=== PATIENT | female | born 1930 | race Caucasian/White ===

== ENCOUNTER 2017-05-03 14:23 | Emergency (ER) | payer MEDICARE, MEDICAID ==
--- NOTE | 2017-05-03 14:58 | ED Physician Chart ---
ED Chief Complaint/HPI - Patient Information Date Seen:: 05/03/17 Time Seen:: 14:57 Chief Complaint:: Right medial ankle laceration History of Present Illness:: 86 yo female was brought from [facility] to ER for a right medial ankle laceration incurred when she felt while transferring from wheelchair to bed. Allergies:: Allergies Allergy/AdvReac Type Severity Reaction Status Date / Time valsartan [From Diovan] AdvReac Verified 05/03/17 14:48 Vitals:: Vital Signs - 8 hr 05/03/17 14:48 Temp 98.7 F HR 75 RR 15 BP 117/74 O2 Sat % 97 ED Review of Systems - Review of Systems General/Constitutional: No fever Skin: Skin lesions Head: No headache Eyes: No pain ENT: No nasal drainage Neck: No neck pain Cardio Vascular: No chest pain Pulmonary: No SOB GI: No nausea, No vomiting Musculoskeletal: No bone or joint pain ED Past Medical History - Past Medical History Past Medical History: Other (wheelchair bound) Social History: Non Smoker, No Alcohol, No Drug Use Family Medical History - Family Member Mother History Unknown: Yes Hx Family Cancer: No Hx Family Coronary Artery Disease: No Hx Family Hypertension: No Hx Family Stroke: No Hx Family Dementia: No Hx Family HIV: No Hx Family Hepatitis: No ED Physical Exam - Physical Examination General/Constitutional: Awake, Alert Head: Atraumatic Eyes: PERRL Skin: No ecchymosis ENMT: Nasal exam nl Neck: No nuchal rigidity Respiratory: No Wheeze/Rhonchi/Rales Cardio Vascular: RRR, No murmur, gallop, rubs, NL S1 S2 GI: No tenderness/rebounding/guarding Other Extremities comments:: Right medial ankle laceration V-shaped 5cm x 4cm Other Neuro/Psych comments:: oriented to self and place ED Assessment - Assessment General Assessment: Right medial ankle laceration Assessment/Comments:: Laceration repair TdaP vaccine Rocephin 1 gm IM Lametrogin 150 mg qd D/c to SNF F/u PCP Remove sutures in 14 days Location:: Right medial ankle laceration Laceration Type:: Simple Prep/Irrigation:: 4cm x 5cm V-shaped wound was cleaned with NS, hydrogen peroxide and betadine, properly draped. Subsequently, 1% lidocaine was injected and a total of six horizontal mattress 4.0 simple interrupted sutures were placed to close the wound. Patient tolerated well without complication. ED Septic Shock - . Is Septic Shock (SBP<90, OR Lactate>4 mmol\L) present?: No - <6hrs of presentation: Vital Signs: Vital Signs - 8 hr 05/03/17 14:48 Temp 98.7 F HR 75 RR 15 BP 117/74 O2 Sat % 97 ED Reassessment (Disposition) - Reassessment Reassessment Condition:: Improved - Aftercare/Follow up Instructions Aftercare/Follow-Up Instructions:: Counseled pt regarding lab results/diagnosis & need follow up - Patient Disposition Discharge/Transfer:: Home ED Discharge Plan - Patient Disposition Admit/Discharge/Transfer: Discharge/Transfered to SNF Condition at Disposition: Stable Instructions: Laceration Care, Adult
[2017-05-03] MEDS ORDERED: Bacitracin pkt 1 gm Pkt TP ONE (15:45)
[2017-05-03] MEDS ORDERED: Bacitracin pkt 1 gm Pkt TP STA (15:49)
== END 2017-05-03 16:20 ==
LOC: ER 14:23
DX: S91.011A Laceration without foreign body, right ankle, initial encounter (principal); Z88.8 Allergy status to other drugs, medicaments and biological substances; X58.XXXA Exposure to other specified factors, initial encounter; Y93.89 Activity, other specified; Y92.89 Other specified places as the place of occurrence of the external cause; Y99.8 Other external cause status
CPT/HCPCS: 99284; 12002; 90715; 96372; J0696; A4217; Z7502; Z7610

== ENCOUNTER 2017-10-17 14:15 | Emergency (ER) | payer MEDICARE, MEDICAID ==
--- NOTE | 2017-10-17 14:33 | ED Physician Chart ---
ED Chief Complaint/HPI - Patient Information Date Seen:: 10/17/17 Time Seen:: 14:20 Chief Complaint:: abnormal EKG History of Present Illness:: Patient had an abnormal EKG at her extended care facility 2 days ago and she was sent here for evaluation. EKG showed bigeminy. Allergies:: Allergies Allergy/AdvReac Type Severity Reaction Status Date / Time valsartan [From Diovan] AdvReac Verified 05/03/17 14:48 Historian:: Patient, EMS ED Review of Systems - Review of Systems General/Constitutional: No fever, No chills, No weight loss, No weakness, No diaphoresis, No edema, No loss of appetite Skin: No skin lesions, No rash, No bruising Head: No headache, No light-headedness Eyes: No loss of vision, No pain, No diplopia ENT: No earache, No nasal drainage, No sore throat, No tinnitus Neck: No neck pain, No swelling, No thyromegaly, No stiffness, No mass noted Cardio Vascular: No chest pain, No palpitations, No PND, No orthopnea, No edema Pulmonary: No SOB, No cough, No sputum, No wheezing GI: No nausea, No vomiting, No diarrhea, No pain, No melena, No hematochezia, No constipation, No hematemesis G/U: No dysuria, No frequency, No hematuria Musculoskeletal: No bone or joint pain, No back pain, No muscle pain Endocrine: No polyuria, No polydipsia Psychiatric: No prior psych history, No depression, No anxiety, No suicidal ideation Hematopoietic: No bruising, No lymphadenopathy Allergic/Immuno: No urticaria, No angioedema Neurological: No syncope, No focal symptoms, No weakness, No paresthesia, No headache, No seizure, No dizziness, No confusion, No vertigo ED Past Medical History - Past Medical History Past Medical History: HTN, Arthritis, Dementia, Other (psychosis; Alzheimer disease) Family History: Other (unavailable) Social History: Care Facility Surgical History: other (unavailable) Psychiatricy History: Dementia Medication: Reviewed Family Medical History - Family Member Mother History Unknown: Yes Hx Family Cancer: No Hx Family Coronary Artery Disease: No Hx Family Hypertension: No Hx Family Stroke: No Hx Family Dementia: No Hx Family HIV: No Hx Family Hepatitis: No ED Physical Exam - Physical Examination General/Constitutional: Awake Other Gen/Cons comments:: Patient is confused. She does not know the correct year. Head: Atraumatic Eyes: Lids, conjuctiva normal, PERRL Skin: Nl inspection, No rash ENMT: External ears, nose nl, Nasal exam nl Other ENMT comments:: Edentulous Neck: No nuchal rigidity Respiratory: Nl effort/Exclusion, Clear to Auscultation Cardio Vascular: RRR, No murmur, gallop, rubs GI: No tenderness/rebounding/guarding : No CVA tenderness Other Extremities comments:: Contracture right wrist and right hand Other Neuro/Psych comments:: Alert and confused Misc: No paraspinal tenderness ED Labs/Radiology/EKG Results - Radiology Results Results: Chest x-ray showed calcification of the aortic arch; otherwise chest x-ray was normal - EKG Interpretations Rate & Rhythm: normal sinus rhythm with a rate of 63 Comments:: Normal axis ED Assessment - Assessment General Assessment: Patient's cardiac rhythm 2 days ago was bigeminy but is now normal sinus rhythm. I talked to Dr. Bam Quinteros and we agreed patient can return to her facility ED Septic Shock - . Is Septic Shock (SBP<90, OR Lactate>4 mmol\L) present?: No ED Reassessment (Disposition) - Reassessment Reassessment Condition:: Improved - Diagnosis Diagnosis:: Cardiac arrhythmia (bigeminy), subsided. - Aftercare/Follow up Instructions Aftercare/Follow-Up Instructions:: Refer to Discharge Instructions - Patient Disposition Discharge/Transfer:: Longterm Care - SNF Condition at Disposition:: Stable, Unchanged
--- NOTE | 2017-10-17 14:44 | Diagnostic Imaging Report ---
CHEST X-RAY: AP view INDICATION: Cardiac arrhythmia COMPARISON: Chest x-ray 02/10/2015 FINDINGS: Chronic lung changes seen with left basal subsegmental atelectasis versus scarring. No focal consolidation or evidence of monique CHF. Cardiomegaly is noted with atherosclerosis. There is evidence of right shoulder arthroplasty. IMPRESSION: Chronic lung changes with left basal subsegmental atelectasis versus scarring. No focal consolidation identified. No evidence of monique CHF. Cardiomegaly and atherosclerotic vascular disease.
== END 2017-10-17 15:38 ==
LOC: ER 14:15
DX: I49.8 Other specified cardiac arrhythmias (principal); I10 Essential (primary) hypertension; M19.90 Unspecified osteoarthritis, unspecified site; Z88.8 Allergy status to other drugs, medicaments and biological substances
CPT/HCPCS: 71045-TC; 93005; Z7502

== ENCOUNTER 2018-05-28 14:54 | Emergency (ER) | payer MEDICARE, MEDICAID ==
--- NOTE | 2018-05-28 15:06 | ED Physician Chart ---
ED Chief Complaint/HPI - Patient Information Date Seen:: 05/28/18 Time Seen:: 15:00 Chief Complaint:: right hip pain History of Present Illness:: Patient fell in the shower yesterday at 10 AM. Allergies:: Allergies Allergy/AdvReac Type Severity Reaction Status Date / Time valsartan [From Diovan] AdvReac Verified 05/03/17 14:48 Historian:: Patient, EMS Review:: Nurse's Note Reviewed ED Review of Systems - Review of Systems General/Constitutional: No fever, No chills, No weight loss, No weakness, No diaphoresis, No edema, No loss of appetite Skin: No skin lesions, No rash, No bruising Head: No headache, No light-headedness Eyes: No loss of vision, No pain, No diplopia ENT: No earache, No nasal drainage, No sore throat, No tinnitus Neck: No neck pain, No swelling, No thyromegaly, No stiffness, No mass noted Cardio Vascular: No chest pain, No palpitations, No PND, No orthopnea, No edema Pulmonary: No SOB, No cough, No sputum, No wheezing GI: No nausea, No vomiting, No diarrhea, No pain, No melena, No hematochezia, No constipation, No hematemesis G/U: No dysuria, No frequency, No hematuria Musculoskeletal: No back pain, No muscle pain Endocrine: No polyuria, No polydipsia Psychiatric: No prior psych history, No depression, No anxiety, No suicidal ideation Hematopoietic: No bruising, No lymphadenopathy Allergic/Immuno: No urticaria, No angioedema Neurological: No syncope, No focal symptoms, No weakness, No paresthesia, No headache, No seizure, No dizziness, No confusion, No vertigo ED Past Medical History - Past Medical History Past Medical History: HTN, Arthritis, Dementia, Other Family History: Other Social History: Smoker (not available), Care Facility Surgical History: other Psychiatricy History: Dementia (available) Medication: Reviewed Family Medical History - Family Member Mother History Unknown: Yes Hx Family Cancer: No Hx Family Coronary Artery Disease: No Hx Family Hypertension: No Hx Family Stroke: No Hx Family Dementia: No Hx Family HIV: No Hx Family Hepatitis: No ED Physical Exam - Physical Examination General/Constitutional: Awake Other Gen/Cons comments:: Chronically ill-appearing Head: Atraumatic Eyes: Lids, conjuctiva normal Skin: Nl inspection ENMT: External ears, nose nl Other ENMT comments:: Edentulous Neck: No nuchal rigidity Respiratory: Nl effort/Exclusion, Clear to Auscultation Cardio Vascular: RRR, No murmur, gallop, rubs Other GI comments:: Very large ventral hernia Other Extremities comments:: Arthritic contractures both hands; movement right leg and appears painful; right foot externally rotated Neuro/Psych: No focal deficits ED Labs/Radiology/EKG Results - Lab Results Results: Laboratory Results WBC 9.5 Th/cmm (4.8-10.8) 05/28/18 15: RBC 4.37 Mil/cmm (3.80-5.20) 05/28/18 15: Hgb 12.2 gm/dL (12-16) 05/28/18 15: Hct 37.5 % (41.0-60) L 05/28/18: MCV 85.7 fl (81-100) 05/28/18: MCH 28.0 pg (27.0-31.0) 05/28/18: MCHC Differential 32.6 pg (28.0-36.0) 05/28/18: RDW 15.3 % (11.5-20.0) 05/28/18: Plt Count 236 Th/cmm (150-400) 05/28/18 15: MPV 8.1 fl 05/28/18: Neutrophils % 79.6 % (40.0-80.0) 05/28/18: Lymphocytes % 12.6 % (20.0-50.0) L 05/28/18: Monocytes % 5.5 % (2.0-10.0) 05/28/18: Eosinophils % 1.8 % (0.0-5.0) 05/28/18: Basophils % 0.5 % (0.0-2.0) 05/28/18 15: PT 10.4 SECONDS (9.5-11.5) 05/28/18 15: INR 1.00 (0.5-1.4) 05/28/18 15: PTT (Actin FS) 23.5 SECONDS (26.0-38.0) L 05/28/18 15:28 Sodium 144 mEq/L (136-145) 05/28/18 15:28 Potassium 4.6 mEq/L (3.5-5.1) 05/28/18 15:28 Chloride 111 mEq/L (98-107) H 05/28/18 15:28 Carbon Dioxide 25.4 mEq/L (21.0-31.0) 05/28/18 15:28 Anion Gap 12.2 (7.0-16.0) 05/28/18 15:28 BUN 33 mg/dL (7-25) H 05/28/18 15:28 Creatinine 0.9 mg/dL (0.6-1.2) 05/28/18 15:28 Est GFR ( Amer) TNP 05/28/18 15:28 Est GFR (Non-Af Amer) TNP 05/28/18 15:28 BUN/Creatinine Ratio 36.7 05/28/18 15:28 Glucose 188 mg/dL (70-105) H 05/28/18 15:28 Calcium 10.6 mg/dL (8.6-10.3) H 05/28/18 15:28 - Radiology Results Results: Right hip and AP pelvis showed no fracture; chest x-ray showed no infiltrate and prominent aortic arch; CT pelvis without contrast showed no fracture ED Assessment - Assessment General Assessment: Since patient has pain with movement of right leg and remainder right leg appears normal an occult fracture of the right hip is certainly possible although regular x-rays and CAT scan were negative. An MRI is a more definitive test. Patient should be admitted to the hospital and I spoke to Janie the case resolution specialist with the patient's urine. Patient to be transferred to [facility] or [place]. ED Septic Shock - . Is Septic Shock (SBP<90, OR Lactate>4 mmol\L) present?: No ED Reassessment (Disposition) - Reassessment Reassessment Condition:: Unchanged - Diagnosis Diagnosis:: Possible occult fracture right hip; dementia - Patient Disposition Discharge/Transfer:: Acute Care (other hosp) Transport Method:: BLS Condition at Disposition:: Stable, Unchanged
[2018-05-28 15:43] LABS: % BASOPHILS 0.5 % (0.0-2.0); % EOSINOPHILS 1.8 % (0.0-5.0); % LYMPHOCYTES 12.6 % (20.0-50.0); % MONOCYTES 5.5 % (2.0-10.0); % NEUTROPHILS 79.6 % (40.0-80.0); EOSINOPHILE ABSOLUTE 0.2 Th/cmm (0.1-0.4); HEMATOCRIT 37.5 % (41.0-60); HEMOGLOBIN 12.2 gm/dL (12-16); LYMPHOCYTE ABSOLUTE 1.2 Th/cmm (1.5-3.0); MEAN CELL VOLUME 85.7 fl (81-100); MEAN CORPUSCULAR HGB CONC 32.6 pg (28.0-36.0); MEAN PLATELET VOLUME 8.1 fl; MONOCYTE ABSOLUTE 0.5 Th/cmm (0.3-1.0); NEUTROPHILE ABSOLUTE 7.6 Th/cmm (1.8-8.0); PLATELET COUNT 236 Th/cmm (150-400); RED BLOOD COUNT 4.37 Mil/cmm (3.80-5.20); RED CELL DISTRIBUTION WIDTH 15.3 % (11.5-20.0); WHITE BLOOD COUNT 9.5 Th/cmm (4.8-10.8)
[2018-05-28 15:47] LABS: ANION GAP 12.2 (7.0-16.0); BUN - UREA NITROGEN 33 mg/dL (7-25); CALCIUM SERUM 10.6 mg/dL (8.6-10.3); CARBON DIOXIDE 25.4 mEq/L (21.0-31.0); CHLORIDE 111 mEq/L (98-107); CREATININE - SERUM 0.9 mg/dL (0.6-1.2); GLUCOSE 188 mg/dL (70-105); POTASSIUM SERUM 4.6 mEq/L (3.5-5.1); SODIUM SERUM 144 mEq/L (136-145)
[2018-05-28 15:51] LABS: PROTHROMBIN TIME (TEST) 10.4 SECONDS (9.5-11.5)
--- NOTE | 2018-05-29 08:45 | Diagnostic Imaging Report ---
CHEST X-RAY: AP view INDICATION: Cough, preop COMPARISON: Chest x-ray 10/17/2017 FINDINGS: Increased left basal lung markings are noted. No focal consolidation or effusion. Mild cardiomegaly is noted with atherosclerosis. Degenerative changes of the spine are noted with scoliosis. Right shoulder arthroplasty is noted. IMPRESSION: Left basal subsegmental atelectasis versus scarring. No focal consolidation identified Cardiomegaly and atherosclerotic vascular disease.
--- NOTE | 2018-05-29 08:52 | Diagnostic Imaging Report ---
Right hip 2 views Indication: Trauma Comparison: none Findings: Mild degenerative changes right hip joint is noted. No evidence of an acute fracture or dislocation. Atherosclerotic vascular disease is noted. Degenerative changes of the right SI joint is noted. Nonspecific 4 mm calcifications is seen along the soft tissues superior to the right greater trochanter. Osteopenia is suspected. Impression: No evidence of an acute fracture. Degenerative changes. Osteopenia is suspected. In the setting of trauma, if clinical symptoms persist and there is continued concern for an occult fracture, follow up exams in 5-7 days is suggested.
--- NOTE | 2018-05-29 09:15 | Diagnostic Imaging Report ---
CT pelvis without IV contrast HISTORY: Pain, rule out fracture of the right hip COMPARISON: Pelvis x-ray the same day Technique: Axial images were obtained from the lower abdomen to the proximal bilateral femurs without IV contrast. Reconstructions were made. total DLP: 570, CTDI15.1 Findings: There is a large midline ventral hernia containing bowel loops including small and large bowel the stomach appears to near the opening of the hernia without evidence of herniation. There is copious amount of stool with distal fecal impaction and rectal wall thickening. Small high density focus along the anterior rectal wall along the cul-de-sac region measuring 1.4 x 0.5 cm (image 62, series 2). Diverticulosis is noted without diverticulitis. No free fluid identified. Note exam is limited due to motion. Diffuse atherosclerotic vascular disease is noted. Advanced degenerative changes of the lower lumbar spine is noted. There is severe 1.3 cm anterolisthesis of what is assumed to be L4 on L5 with severe facet arthrosis at this level. There is partial vertebral body fusion at this level involving the remaining portion of the posterior aspect of L4 to the anterior aspect of L5. Mild degenerative changes of bilateral hip joints are noted. No femoral fracture or dislocation. There are changes of SI joints are noted. There is slight contour irregularity of the left pubic bone just proximal to the pubic symphysis. Osteopenia is noted. IMPRESSION: No femoral fracture identified. If there is continued concern for an occult femoral neck fracture, MRI is recommended for further assessment Slight contour irregularity of the left pubic bone just proximal to the pubic symphysis. This is nonspecific. A nondisplaced fracture is less likely, however, correlation should be made clinically. Severe anterolisthesis measuring up to 1.3 cm at what is assumed to be L4 on L5 likely secondary to severe long-standing facet arthropathy at this level. There is partial fusion of L4 and L5 at this level Large midline ventral hernia containing both small and large bowel loops. Copious amount of stool with distal fecal impaction. Rectal wall thickening is also noted. Nonspecific area 1.4 x 0.5 cm high density seen along the anterior right rectal wall along the cul-de-sac region. Findings may be due to prior inflammatory process. Neoplastic process less likely. Follow-up recommended. Diverticulosis without evidence of diverticulitis Diffuse atherosclerosis.
== END 2018-05-28 19:15 | disposition short-term general hospital (02) ==
LOC: ER 14:54
DX: M25.551 Pain in right hip (principal); F03.90 Unspecified dementia, unspecified severity, without behavioral disturbance, psychotic disturbance, mood disturbance, and anxiety; I10 Essential (primary) hypertension; M19.90 Unspecified osteoarthritis, unspecified site; F17.200 Nicotine dependence, unspecified, uncomplicated; Z88.8 Allergy status to other drugs, medicaments and biological substances
CPT/HCPCS: 36415-UA; 71045-TC; 72192-TC; 73501; 80048-TC; 83036-90; 85025-TC; 85610-TC; 85730-TC